=== PATIENT | male | born 1935 | race Caucasian/White ===

== ENCOUNTER 2023-07-23 10:58 | Observation (INO) ==
[2023-07-23] MEDS: NS 0.9% 1000 ml BAG 1,000 ML IV ONE (11:15)
[2023-07-23 11:35] LABS: ABS Eosinophils 0.1 10^3/uL (0.0-0.5); ABS Monocytes 0.4 10^3/uL (0.0-1.1); ABS Neutrophils 3.5 10^3/uL (1.5-7.6); ABS Nucleated RBC 0.01 10^3/ul; Eosinophil % 1.2 %; Hematocrit 38.5 % (38-53); Hemoglobin 13.3 g/dL (13.2-16.3); Lymphocyte % 20.9 %; Mean Corpuscular Hemoglobin 29.4 pg (27-33); Mean Corpuscular Hgb Conc 34.5 g/dL (31-36); Mean Corpuscular Volume 85.2 fL (80-97); Mean Platelet Volume 7.9 fL (7.5-11.2); Nucleated Red Blood Cells % 0.1 %/100WBC (0.0-0.8); Platelet Count 180 10^3/uL (150-450); Red Blood Count 4.52 10^6/uL (4.06-5.63); Red Cell Distribution Width 14.5 % (12-17)
[2023-07-23 11:52] LABS: INR 0.97 (0.83-1.13)
[2023-07-23 12:09] LABS: Albumin 4.4 g/dL (3.2-5.2); Albumin/Globulin Ratio 1.7 (1-3); Calcium 9.5 mg/dL (8.6-10.3); Creatinine, Serum 1.16 mg/dL (0.67-1.17); Globulin 2.6 g/dL (2-4); Magnesium 1.9 mg/dL (1.9-2.7); Potassium 4.3 mmol/L (3.5-5.0); Total Bilirubin 0.5 mg/dL (0.2-1.0); eGFR CKD-EPI 60.6 (>60)
[2023-07-23 12:24] LABS: TSH Ultra Thyroid Stim Horm 3.17 mcIU/mL (0.34-5.60)
[2023-07-23] MEDS ORDERED: Al Hydrox/Mg Hydrox/Simet LIQ 30 ML UDC PO PRN (13:21)
[2023-07-23 13:23] LABS: High Sensitivity Troponin 1 Hr 5 pg/mL (<20)
[2023-07-23] MEDS: Enoxaparin 40 MG/0.4 ML SYR SUBCUT SCH (15:45)
[2023-07-23] MEDS: NS 0.9% 1000 ml BAG 1,000 ML IV SCH (15:45)
[2023-07-23] MEDS: CMC:Simvastatin 10 mg TAB (NF) PO SCH (22:55)
[2023-07-24 07:02] LABS: Albumin 3.7 g/dL (3.2-5.2); Albumin/Globulin Ratio 1.9 (1-3); Calcium 8.9 mg/dL (8.6-10.3); Creatinine, Serum 1.16 mg/dL (0.67-1.17); Potassium 4.2 mmol/L (3.5-5.0); Total Bilirubin 0.4 mg/dL (0.2-1.0); Total Protein 5.7 g/dL (6.4-8.9); eGFR CKD-EPI 60.6 (>60)
[2023-07-24] MEDS ORDERED: Sulfur Hexaflouride MICROSPHR 25 MG VIAL ONE (12:22)
[2023-07-24 17:07] VITALS: BP 146/64
[2023-07-27 16:38] LABS: IgG Immunoblot Positive (Negative); IgM Immunoblot Negative (Negative)
== END 2023-07-24 18:10 | disposition home or self-care (01) ==
LOC: ED 10:58 → EDHOLD 10:58 → SUATTDRO 13:13 → MEDTELE 15:52
PROVIDERS: ADMIT Internal Medicine; ATTEND Hospitalist